=== PATIENT | female | born 1965 | race Two or more races ===

== ENCOUNTER 2018-07-04 11:40 | Emergency (ER) | payer MEDICAID ==
[~2018-07-04] VITALS: Ht 154.9 cm; Wt 73.0 kg
[2018-07-04 11:50] VITALS: BP 149/107; Ht 154.9 cm; Wt 73.0 kg
== END 2018-07-04 13:00 | disposition home or self-care (01) ==
LOC: ED 11:40
DX: M54.5 Low back pain (principal); R50.9 Fever, unspecified; E03.9 Hypothyroidism, unspecified
CPT/HCPCS: 82962